=== PATIENT | male | born 1990 | race Hispanic/Latino ===

== ENCOUNTER 2017-01-06 21:30 | Emergency (ER) | payer SELFPAY ==
[2017-01-07] MEDS ORDERED: Bacitracin Zinc 1 Packet ONE (00:12)
== END 2017-01-07 01:00 | disposition home or self-care (01) ==
LOC: ERS 21:30
DX: S51.812A Laceration without foreign body of left forearm, initial encounter (principal); S61.512A Laceration without foreign body of left wrist, initial encounter; F17.210 Nicotine dependence, cigarettes, uncomplicated; W25.XXXA Contact with sharp glass, initial encounter
CPT/HCPCS: 99282